=== PATIENT | female | born 1945 | race Caucasian/White ===

== ENCOUNTER 2016-07-11 16:36 | Emergency (ER) | payer MEDICARE, OTHER ==
[~2016-07-11] VITALS: Ht 148.6 cm; Wt 95.0 kg
[~2016-07-11 16:36] MED LIST: ASPI81 PO; EZET10 PO; NITR.4 SL; PRIL40CA PO; TOPR50TA PO; TRIBENZOR
[2016-07-11 16:45] VITALS: BP 151/81; PULSE 146; RESP 16; TEMP 98.9; O2SAT 96
[2016-07-11] MEDS ORDERED: DILTIAZEM INJ 125 MG in SODIUM CHLORIDE 0.9% INJ 100 ML IV SCH (16:45)
[2016-07-11] MEDS ORDERED: DILTIAZEM HCL 25 MG/5 ML VIAL IV ONE (16:45)
[2016-07-11] MEDS ORDERED: SODIUM CHLORIDE 0.9% FLUSH 5 ML FLUSH IVF PRN ×2 (16:45)
--- NOTE | 2016-07-11 16:47 | PD ---
HPI Chief Complaint: palpitations, chest pain Time Seen by Provider: 16:40 Travel History International Travel<30 days: No Contact w/Intl Traveler<30days: No Traveled to known affect area: No History of Present Illness HPI This 71-year-old female says she was watching TV this afternoon when she had an onset of chest pain. It was a pressure type pain which radiated to her back and also up to her jaw. The pain lasted for about 25 minutes. She checked her blood pressure noted her heart rate was 121. She is also having palpitations at that time. She has had palpitations in the past and has been to ERs twice but nothing was found, the palpitations had resolved by the time she got there. She has a history of hypertension and is on metoprolol 100 mg in morning and 50 mg at night. She doesn't also take a combination pill for her high blood pressure with amlodipine and hydrochlorothiazide. She does get dyspnea on exertion. She does not smoke cigarettes. She is not having chest pain now. She has had 4 back surgeries in the past. She had a cardiac catheterization in 2010 which showed normal coronary arteries and normal ejection fraction PFSH Past Medical History Cancer: No Cardiovascular Problems: No Diabetes: No Endocrine: No Genitourinary: No Hepatitis: No Hiatal Hernia: No Immune Disorder: No Musculoskeletal: Yes Neurologic: No Psychiatric: No Reproductive: No Respiratory: Yes (HX OF BRONCHITIS ) Thyroid Disease: No Past Surgical History Ear Surgery: No Eye Surgery: No Gynecologic Surgery: Yes (LEFT TUBE AND OVERY REMOVED ON THE LEFT SIDE ) Joint Replacement: No Pacemaker: No Social History Tobacco Use: No Allergies-Medications (Allergen,Severity, Reaction): Coded Allergies: Ampicillin (Verified Allergy, Severe, 06/03/11) Biaxin (Verified Allergy, Severe, 06/03/11) Morphine (Verified Allergy, Severe, 06/03/11) Uncoded Allergies: STATINS (Allergy, Severe, 06/03/11) Reported Meds & Prescriptions Reported Meds & Active Scripts Active Reported [trivezer] 1 Tab PO DAILY Omeprazole 20 Mg Tab 20 Mg PO DAILY Zetia (Ezetimibe) 10 Mg Tab 10 Mg PO HS Metoprolol Tartrate 100 Mg Tab 100 Mg PO BID Metoprolol Tartrate 50 Mg Tab 50 Mg PO DAILY@1600 Aspirin 81 Mg Tabdr 81 Mg PO DAILY Review of Systems General / Constitutional: No: Fever, Chills Eyes: No: Diploplia HENT: No: Headaches Cardiovascular: Positive: Chest Pain or Discomfort, No: Palpitations Respiratory: No: Cough, Shortness of Breath Gastrointestinal: No: Nausea, Vomiting Genitourinary: No: Frequency Musculoskeletal: No: Myalgias, Arthralgias Skin: No Rash, No Itching Neurologic: No: Dizziness, Syncope Hematologic/Lymphatic: No: Easy Bruising Physical Exam Narrative GENERAL: Well-developed female. Heart rate is 130 and irregular SKIN: Warm and dry. HEAD: Atraumatic. Normocephalic. EYES: Pupils equal and round. No scleral icterus. No injection or drainage. ENT: No nasal bleeding or discharge. Mucous membranes pink and moist. NECK: Trachea midline. No JVD. CARDIOVASCULAR: Rapid, irregular rate and rhythm. No murmur appreciated. RESPIRATORY: No accessory muscle use. Clear to auscultation. Breath sounds equal bilaterally. GASTROINTESTINAL: Abdomen soft, non-tender, nondistended. Hepatic and splenic margins not palpable. MUSCULOSKELETAL: No obvious deformities. No clubbing. No cyanosis. No edema. NEUROLOGICAL: Awake and alert. No obvious cranial nerve deficits. Motor grossly within normal limits. Normal speech. PSYCHIATRIC: Appropriate mood and affect; insight and judgment normal. Data Data Last Documented VS Vital Signs Date Time Temp Pulse Resp B/P Pulse Ox O2 Delivery O2 Flow Rate FiO2 07/11/16 16:49 96 Room Air 07/11/16 16:49 123 16 07/11/16 16:45 98.9 151/81 Orders Electrocardiogram (07/11/16 16:40) B-Type Natriuretic Peptide (07/11/16 16:40) Complete Blood Count With Diff (07/11/16 16:40) Comprehensive Metabolic Panel (07/11/16 16:40) Magnesium (Mg) (07/11/16 16:40) Prothrombin Time / Inr (Pt) (07/11/16 16:40) Act Partial Throm Time (Ptt) (07/11/16 16:40) Troponin I (07/11/16 16:40) Chest, Single Ap (07/11/16 16:40) Ecg Monitoring (07/11/16 16:40) Iv Access Insert/Monitor (07/11/16 16:40) Oximetry (07/11/16 16:40) Oxygen Administration (07/11/16 16:40) Sodium Chloride 0.9% Flush (Ns Flush) (07/11/16 16:45) Blood Pressure (07/11/16 16:40) Vital Signs (07/11/16 16:40) Diltiazem Inj (Cardizem Inj) (07/11/16 16:45) Sodium Chloride 0.9% Flush (Ns Flush) (07/11/16 16:45) Diltiazem Inj (Cardizem Inj) (07/11/16 16:45) Potassium Chloride (Kcl) (07/11/16 17:15) Admit Order (Ed Use Only) (07/11/16 17:50) Labs Laboratory Tests Test 07/11/16 16:40 White Blood Count 6.8 TH/MM3 Red Blood Count 5.31 MIL/MM3 Hemoglobin 15.6 GM/DL Hematocrit 46.3 % Mean Corpuscular Volume 87.2 FL Mean Corpuscular Hemoglobin 29.3 PG Mean Corpuscular Hemoglobin 33.6 % Concent Red Cell Distribution Width 14.1 % Platelet Count 220 TH/MM3 Mean Platelet Volume 8.3 FL Neutrophils (%) (Auto) 44.1 % Lymphocytes (%) (Auto) 40.3 % Monocytes (%) (Auto) 10.8 % Eosinophils (%) (Auto) 2.6 % Basophils (%) (Auto) 2.2 % Neutrophils # (Auto) 3.1 TH/MM3 Lymphocytes # (Auto) 2.7 TH/MM3 Monocytes # (Auto) 0.7 TH/MM3 Eosinophils # (Auto) 0.2 TH/MM3 Basophils # (Auto) 0.1 TH/MM3 CBC Comment DIFF FINAL Differential Comment Prothrombin Time 10.6 SEC Prothromb Time International 1.0 RATIO Ratio Activated Partial 25.9 SEC Thromboplast Time Sodium Level 145 MEQ/L Potassium Level 3.4 MEQ/L Chloride Level 107 MEQ/L Carbon Dioxide Level 27.9 MEQ/L Anion Gap 10 MEQ/L Blood Urea Nitrogen 29 MG/DL Creatinine 1.20 MG/DL Estimat Glomerular Filtration 44 ML/MIN Rate Random Glucose 111 MG/DL Calcium Level 9.1 MG/DL Magnesium Level 1.8 MG/DL Total Bilirubin 0.5 MG/DL Aspartate Amino Transf 19 U/L (AST/SGOT) Alanine Aminotransferase 26 U/L (ALT/SGPT) Alkaline Phosphatase 71 U/L Troponin I LESS THAN 0.02 NG/ML B-Type Natriuretic Peptide 277 PG/ML Total Protein 7.2 GM/DL Albumin 3.8 GM/DL MDM Medical Decision Making Medical Screen Exam Complete: Yes Emergency Medical Condition: Yes Medical Record Reviewed: Yes Differential Diagnosis Differential includes SVT, coronary artery disease, atrial fibrillation Narrative Course EKG shows atrial fibrillation with a rapid rate. Potassium is slightly low at 3.4 this has been supplemented. Patient was started on Cardizem with control of her heart rate she has not converted out of her atrial fibrillation. At approximately 6:28 I have reevaluated the patient and at this time she is in sinus rhythm. She is pain-free. She appears quite stable at this time. She wishes to be released. I had admitted her but she wishes to go home and has come out of her atrial fibrillation. He had stopped the Cardizem and she remained stable. sHe will be released. He is to follow-up with Dr. Siddiqi and Dr. Ernst. Diagnosis Primary Impression: Paroxysmal atrial fibrillation Admitting Information Admitting Physician Requests: Admit Additional Instructions: Return if, follow-up with Dr. Ernst and Dr. Siddiqi Disposition: 01 DISCHARGE HOME Condition: Stable Abdoulaye Jaramillo MD Jul 11, 2016 16:47
[2016-07-11 16:49] VITALS: O2SAT 96
[2016-07-11 16:57] LABS: AUTOMATED NEUTROPHIL # 3.1 TH/MM3 (1.8-7.7); BASOPHIL # 0.1 TH/MM3 (0-0.2); BASOPHIL % 2.2 % (0.0-2.0); EOSINOPHIL # 0.2 TH/MM3 (0-0.4); EOSINOPHIL % 2.6 % (0.0-4.0); HEMATOCRIT 46.3 % (35.0-46.0); HEMO FLAGS DIFF FINAL; LYMPH % 40.3 % (9.0-44.0); LYMPHOCYTE # 2.7 TH/MM3 (1.0-4.8); MEAN CELL VOLUME 87.2 FL (80.0-100.0); MEAN CORPUSCULAR HEMOGLOBIN 29.3 PG (27.0-34.0); MEAN CORPUSCULAR HGB CONC 33.6 % (32.0-36.0); MONO % 10.8 % (0.0-8.0); NEUT % 44.1 % (16.0-70.0); PLATELET COUNT 220 TH/MM3 (150-450); RED BLOOD COUNT 5.31 MIL/MM3 (4.00-5.30); RED CELL DISTRIBUTION WIDTH 14.1 % (11.6-17.2); WHITE BLOOD COUNT 6.8 TH/MM3 (4.0-11.0)
[2016-07-11 17:03] LABS: CHLORIDE 107 MEQ/L (98-107); POTASSIUM 3.4 MEQ/L (3.5-5.1); SODIUM (NA) 145 MEQ/L (136-145)
[2016-07-11] MEDS ORDERED: ASPI1TAB69 PO (17:04)
[2016-07-11] MEDS ORDERED: METO100T PO (17:04)
[2016-07-11] MEDS ORDERED: METO50TA PO (17:04)
[2016-07-11] MEDS ORDERED: OMEP20TA PO (17:04)
[2016-07-11] MEDS ORDERED: ZETI10TA5 PO (17:04)
[2016-07-11] MEDS ORDERED: [UNRECOGNIZED DRUG - OTHER] PO (17:04)
[2016-07-11 17:07] LABS: ANION GAP 10 MEQ/L (5-15); BICARBONATE 27.9 MEQ/L (21.0-32.0); BLOOD UREA NITROGEN 29 MG/DL (7-18); MAGNESIUM 1.8 MG/DL (1.5-2.5)
[2016-07-11 17:09] LABS: APTT (PATIENT) 25.9 SEC (24.3-30.1); PROTHROMBIN TIME - PATIENT 10.6 SEC (9.8-11.6)
[2016-07-11 17:10] LABS: ALT (GPT) 26 U/L (10-53); AST (GOT) 19 U/L (15-37); GLOMERULAR FILTRATION RATE 44 ML/MIN (>89)
[2016-07-11 17:11] LABS: TOTAL BILIRUBIN ADULT 0.5 MG/DL (0.2-1.0)
[2016-07-11 17:13] LABS: ALKALINE PHOSPHATASE 71 U/L (45-117)
[2016-07-11] MEDS ORDERED: POTASSIUM CHLORIDE 20 MEQ CONTROLLED RELEASE TAB PO ONE (17:15)
--- NOTE | 2016-07-11 17:19 | RADHPO ---
EXAM DATE/TIME: 07/11/2016 17:06 [facility] COMPARISON: CHEST SINGLE AP, November 16, 2012, 7:12. INDICATIONS : Chest pain. MEDICAL HISTORY : Hypertension. Hypercholesterolemia. Glaucoma SURGICAL HISTORY : Fusion, lumbar. ENCOUNTER: Initial ACUITY: 1 day PAIN SCORE: 7/10 LOCATION: Bilateral chest FINDINGS: A single view of the chest demonstrates the lungs to be symmetrically aerated without evidence of mas s, infiltrate or effusion. The cardiomediastinal contours are unremarkable. Osseous structures are intact. CONCLUSION: No acute disease. Yunior Yanes MD on July 11, 2016 at 17:18 Board Certified Radiologist. This report was verified electronically.
[2016-07-11 19:10] VITALS: BP 136/65; PULSE 72; RESP 18; O2SAT 98
[2016-07-11 19:40] VITALS: BP 119/69
--- NOTE | 2016-07-12 15:40 | EKG ---
Date Performed: 07/11/2016 Time Performed: 16:23:20 PTAGE: 71 years EKG: Atrial fibrillation with rapid ventricular response. Left axis deviation Inferior infarct - age undetermined Possible anterior infarct - age undetermined Lateral ST-T changes may be due to gilma cardial ischemia Atrial fibrillation replaces Sinus rhythm Abnormal ECG PREVIOUS TRACING : 11/16/2012 07.22 DOCTOR: Steven Kirk Interpretating Date/Time 07/12/2016 15:39:44
[2016-07-13] MEDS ORDERED: TRIBTAB PO (15:10)
== END 2016-07-11 19:44 | disposition home or self-care (01) ==
LOC: PHED 16:36 → UNDOADMOB 17:51 → PHEDA 17:51 → PHED 19:44
DX: I48.0 Paroxysmal atrial fibrillation (principal); I10 Essential (primary) hypertension; R06.09 Other forms of dyspnea; E87.6 Hypokalemia; Z79.899 Other long term (current) drug therapy
CPT/HCPCS: 71010; 80053; 83735; 83880; 84484; 85025; 85610; 85730; 93005; 96374

== ENCOUNTER 2016-09-12 03:01 | Inpatient (IN) | payer MEDICARE, OTHER ==
[2016-09-12] VITALS (18 sets, daily range): BP systolic 115–145; BP diastolic 44–85; PULSE 56–136; RESP 14–20; TEMP 97.8–98.2; O2SAT 92–99
[~2016-09-12] VITALS: Ht 147.3 cm; Wt 96.2 kg
[~2016-09-12 03:01] MED LIST changes: +ASPI1TAB69 PO; -ASPI81 PO; -EZET10 PO; +METO100T PO; +METO50TA PO; -NITR.4 SL; +OMEP20TA PO; -PRIL40CA PO; -TOPR50TA PO; -TRIBENZOR; +TRIBTAB PO; +ZETI10TA5 PO
[2016-09-12] MEDS ORDERED: SODIUM CHLORIDE 0.9% FLUSH 5 ML FLUSH IVF PRN (03:30)
[2016-09-12] MEDS ORDERED: DILTIAZEM HCL 25 MG/5 ML VIAL IV ONE ×2 (03:30)
[2016-09-12 03:46] LABS: BASOPHIL # 0.2 TH/MM3 (0-0.2); BASOPHIL % 1.9 % (0.0-2.0); EOSINOPHIL # 0.1 TH/MM3 (0-0.4); EOSINOPHIL % 1.1 % (0.0-4.0); HEMATOCRIT 47.5 % (35.0-46.0); LYMPH % 26.3 % (9.0-44.0); LYMPHOCYTE # 2.6 TH/MM3 (1.0-4.8); MEAN CELL VOLUME 88.1 FL (80.0-100.0); MEAN CORPUSCULAR HEMOGLOBIN 29.4 PG (27.0-34.0); MEAN CORPUSCULAR HGB CONC 33.3 % (32.0-36.0); MONO % 8.9 % (0.0-8.0); NEUT % 61.8 % (16.0-70.0); PLATELET COUNT 204 TH/MM3 (150-450); RED BLOOD COUNT 5.39 MIL/MM3 (4.00-5.30); RED CELL DISTRIBUTION WIDTH 14.2 % (11.6-17.2); WHITE BLOOD COUNT 9.8 TH/MM3 (4.0-11.0)
--- NOTE | 2016-09-12 03:50 | RADHPO ---
EXAM DATE/TIME: 09/12/2016 03:43 [facility] COMPARISON: No previous studies available for comparison. INDICATIONS : Chest pain, irregular heart rate for 4 hours MEDICAL HISTORY : A-fib SURGICAL HISTORY : None. ENCOUNTER: Initial ACUITY: 1 day PAIN SCORE: 5/10 LOCATION: Bilateral chest FINDINGS: A single view of the chest demonstrates the lungs to be symmetrically aerated without evidence of mas s, infiltrate or effusion. The cardiomediastinal contours are unremarkable. Osseous structures are intact. CONCLUSION: 1. No active disease. No effusion or pneumothorax. Demetrio Guevara MD on September 12, 2016 at 3:48 Board Certified Radiologist. This report was verified electronically.
[2016-09-12 03:51] LABS: HEMO FLAGS DIFF FINAL
[2016-09-12 03:56] LABS: CHLORIDE 103 MEQ/L (98-107); POTASSIUM 3.4 MEQ/L (3.5-5.1); SODIUM (NA) 142 MEQ/L (136-145)
[2016-09-12 03:59] LABS: ANION GAP 11 MEQ/L (5-15); MAGNESIUM 1.5 MG/DL (1.5-2.5)
[2016-09-12 04:00] LABS: BLOOD UREA NITROGEN 23 MG/DL (7-18)
[2016-09-12 04:02] LABS: APTT (PATIENT) 28.3 SEC (24.3-30.1); INTERNATIONAL NORMALIZED RATIO 1.1 RATIO; PROTHROMBIN TIME - PATIENT 11.7 SEC (9.8-11.6)
[2016-09-12 04:03] LABS: GLOMERULAR FILTRATION RATE 37 ML/MIN (>89)
[2016-09-12 04:12] LABS: CREATINE KINASE 94 U/L (26-192)
--- NOTE | 2016-09-12 04:43 | PD ---
HPI Chief Complaint: Cardiac Complaint Time Seen by Provider: 03:14 Travel History International Travel<30 days: No Contact w/Intl Traveler<30days: No Traveled to known affect area: No History of Present Illness HPI 71-year-old female arrives due to irregular heartbeat at home chest pain and back pain which started about 3 hours prior to ER arrival. She knew her heart rate was irregular using her home blood pressure cuff. She reports a recent diagnosis of atrial fibrillation about [address] Ernst. She takes metoprolol, Tribenzor, Eliquis and digoxin. The patient reports she has been quite busy this past week preparing for her taxes. Otherwise she has been in her normal state of health. PFSH Past Medical History Atrial Fibrillation: Yes Cancer: No Cardiovascular Problems: Yes High Cholesterol: Yes Diabetes: No Diminished Hearing: No Endocrine: No Gastrointestinal Disorders: No Glaucoma: Yes Genitourinary: No Hepatitis: No Hiatal Hernia: No Hypertension: Yes Immune Disorder: No Musculoskeletal: Yes Neurologic: No Psychiatric: No Reproductive: No Respiratory: Yes (HX OF BRONCHITIS ) Thyroid Disease: No Tetanus Vaccination: > 5 Years Influenza Vaccination: No Past Surgical History Ear Surgery: No Eye Surgery: No Gynecologic Surgery: Yes (LEFT TUBE AND OVERY REMOVED ON THE LEFT SIDE ) Joint Replacement: No Pacemaker: No Other Surgery: Yes (Cataracts) Social History Alcohol Use: No Tobacco Use: No Substance Use: No Allergies-Medications (Allergen,Severity, Reaction): Coded Allergies: Ampicillin (Verified Allergy, Severe, 06/03/11) Biaxin (Verified Allergy, Severe, 06/03/11) Morphine (Verified Allergy, Severe, 06/03/11) Uncoded Allergies: STATINS (Allergy, Severe, 06/03/11) Reported Meds & Prescriptions Reported Meds & Active Scripts Active Reported Tribenzor (Ueziqknrwi-Tpggtpbtlh-Bbknvtdbuhelxxambpy) Unknown Strength Tab Unknown Dose PO DAILY Omeprazole 20 Mg Tab 20 Mg PO DAILY Zetia (Ezetimibe) 10 Mg Tab 10 Mg PO HS Metoprolol Tartrate 100 Mg Tab 100 Mg PO BID Metoprolol Tartrate 50 Mg Tab 50 Mg PO DAILY@1600 Aspirin 81 Mg Tabdr 81 Mg PO DAILY Review of Systems Except as stated in HPI: all other systems reviewed are Neg Physical Exam Narrative GENERAL: 71 F, WNWD, NAD SKIN: Warm and dry. HEAD: Atraumatic. Normocephalic. EYES: Pupils equal and round. No scleral icterus. No injection or drainage. ENT: No nasal bleeding or discharge. Mucous membranes pink and moist. NECK: Trachea midline. No JVD. CARDIOVASCULAR: Irregular. Tachycardia. RESPIRATORY: No accessory muscle use. Clear to auscultation. Breath sounds equal bilaterally. GASTROINTESTINAL: Abdomen soft, non-tender, nondistended. Hepatic and splenic margins not palpable. MUSCULOSKELETAL: Extremities without clubbing, cyanosis, or edema. No obvious deformities. NEUROLOGICAL: Awake and alert. No obvious cranial nerve deficits. Motor grossly within normal limits. Five out of 5 muscle strength in the arms and legs. Normal speech. PSYCHIATRIC: Appropriate mood and affect; insight and judgment normal. Data Data Last Documented VS Vital Signs Date Time Temp Pulse Resp B/P Pulse Ox O2 Delivery O2 Flow Rate FiO2 09/12/16 04:45 79 128/78 97 Nasal Cannula 2 09/12/16 03:55 16 09/12/16 03:15 98.1 VS noted Orders Electrocardiogram (09/12/16 03:16) Basic Metabolic Panel (Bmp) (09/12/16 03:16) Ckmb (Isoenzyme) Profile (09/12/16 03:16) Complete Blood Count With Diff (09/12/16 03:16) Magnesium (Mg) (09/12/16 03:16) Prothrombin Time / Inr (Pt) (09/12/16 03:16) Act Partial Throm Time (Ptt) (09/12/16 03:16) Troponin I (09/12/16 03:16) Chest, Single Ap (09/12/16 03:16) Ecg Monitoring (09/12/16 03:16) Bilateral Bp Monitoring (09/12/16 03:16) Iv Access Insert/Monitor (09/12/16 03:16) Oximetry (09/12/16 03:16) Oxygen Administration (09/12/16 03:16) Sodium Chloride 0.9% Flush (Ns Flush) (09/12/16 03:30) Diltiazem Inj (Cardizem Inj) (09/12/16 03:30) Diltiazem Inj (Cardizem Inj) (09/12/16 03:30) Diltiazem Inj (Cardizem Inj) (09/12/16 05:00) Admit Order (Ed Use Only) (09/12/16 04:58) Labs Laboratory Tests Test 09/12/16 03:17 White Blood Count 9.8 TH/MM3 Red Blood Count 5.39 MIL/MM3 Hemoglobin 15.8 GM/DL Hematocrit 47.5 % Mean Corpuscular Volume 88.1 FL Mean Corpuscular Hemoglobin 29.4 PG Mean Corpuscular Hemoglobin 33.3 % Concent Red Cell Distribution Width 14.2 % Platelet Count 204 TH/MM3 Mean Platelet Volume 9.3 FL Neutrophils (%) (Auto) 61.8 % Lymphocytes (%) (Auto) 26.3 % Monocytes (%) (Auto) 8.9 % Eosinophils (%) (Auto) 1.1 % Basophils (%) (Auto) 1.9 % Neutrophils # (Auto) 6.0 TH/MM3 Lymphocytes # (Auto) 2.6 TH/MM3 Monocytes # (Auto) 0.9 TH/MM3 Eosinophils # (Auto) 0.1 TH/MM3 Basophils # (Auto) 0.2 TH/MM3 CBC Comment DIFF FINAL Differential Comment Prothrombin Time 11.7 SEC Prothromb Time International 1.1 RATIO Ratio Activated Partial 28.3 SEC Thromboplast Time Sodium Level 142 MEQ/L Potassium Level 3.4 MEQ/L Chloride Level 103 MEQ/L Carbon Dioxide Level 28.0 MEQ/L Anion Gap 11 MEQ/L Blood Urea Nitrogen 23 MG/DL Creatinine 1.40 MG/DL Estimat Glomerular Filtration 37 ML/MIN Rate Random Glucose 119 MG/DL Calcium Level 9.9 MG/DL Magnesium Level 1.5 MG/DL Total Creatine Kinase 94 U/L Troponin I LESS THAN 0.02 NG/ML MDM Medical Decision Making Medical Screen Exam Complete: Yes Emergency Medical Condition: Yes Medical Record Reviewed: Yes Interpretation(s) EKG: Atrial fibrillation with RVR rate 126 left axis deviation Last 24 hours Impressions Chest X-Ray 09/12/166 Signed Impressions: Service Date/Time: Monday, September 12, 2016 03:43 - CONCLUSION: 1. No active disease. No effusion or pneumothorax. Demetrio Guevara MD CBC & BMP Diagram 09/12/16 03:17 Tn < 0.02 Stress test from two months prior was normal INR 1.1 Differential Diagnosis NSTEMI, unstable angina, coronary vasospasm, PE, PTX, aortic dissection, pericarditis, myocarditis, endocarditis, PNA, esophageal disease, aneurysm, musculoskeletal etiologies, anxiety, cocaine/sympathomimetic abuse Narrative Course Case was discussed with Dr. Siddiqi's mid-level provider. Dr. Siddiqi is out of town and asked that the hospitalist service admit. The patient required 2 doses of diltiazem however persistently irregular rhythm remained trending towards 100 bpm. A diltiazem drip was initiated. Fortunately the patient's chest pain remained essentially asymptomatic. We did discuss with Dr. Siddiqi' s advance practitioner that the patient had slightly declining renal function which will be addressed on an outpatient basis. D/w Dr Jha. Diagnosis Primary Impression: Atrial fibrillation with rapid ventricular response Additional Impression: Hypokalemia Admitting Information Admitting Physician Requests: Pritesh Humphryes MD Sep 12, 2016 04:43
[2016-09-12] MEDS ORDERED: SODIUM CHLORIDE 0.9% FLUSH 5 ML FLUSH FLUSH PRN (05:00)
[2016-09-12] MEDS ORDERED: NALOXONE HCL 0.4 MG/ML AMP IV PRN (05:00)
[2016-09-12] MEDS ORDERED: DILTIAZEM INJ 125 MG in SODIUM CHLORIDE 0.9% INJ 100 ML IV SCH (05:00)
[2016-09-12] MEDS: SODIUM CHLORIDE 0.9% FLUSH 5 ML FLUSH FLUSH SCH ×2 (08:57→20:25)
[2016-09-12] MEDS ORDERED: APIX5TAB PO (10:08)
[2016-09-12] MEDS ORDERED: CYAN100015 BUCCAL (10:08)
[2016-09-12] MEDS ORDERED: OCUVTAB PO (10:08)
[2016-09-12] MEDS ORDERED: D-3 PO (10:08)
[2016-09-12] MEDS ORDERED: LUMI0.01 EACH EYE (10:08)
[2016-09-12] MEDS ORDERED: DIGO0.12 PO (10:08)
--- NOTE | 2016-09-12 11:47 | MB ---
cc: NARESH ARTHUR DATE OF CONSULTATION 09/12/2016 DATE OF 1945 REASON FOR CONSULTATION Atrial fibrillation with rapid ventricular response. HISTORY OF PRESENT ILLNESS 71-year-old female with a past medical history significant for atrial fibrillation on chronic oral Anticoagulation, GERD, hyperlipidemia and chronic kidney disease who presented to the emergency department in [place] with complaints of palpitations, mild chest discomfort and back pain. She reports she was in her usual state of health until yesterday where she felt palpitations. She reports she has been under a lot of stress lately filing her taxes. She denies syncope, presyncope, lightheadedness, PND, leg edema or noncompliance with medications. She recently was seen by Dr. Ernst ([facility]) for a general evaluation. She was found to be in atrial fibrillation and started and Metoprolol and Eliquis, also she had a negative ischemic work up with unremarkable MPI and echocardiogram. She was also referred to Dr. Blakely for possible ablation of atrial fibrillation. Currently she denies fevers, chills, nausea, vomiting or diarrhea, weight gain, weight loss, chest pain, shortness of breath. She is back in normal sinus rhythm with the rate in the 60s. In the emergency department, she was given IV Cardizem. REVIEW OF SYSTEMS The review of systems is negative except for what is mentioned in the HPI. PAST MEDICAL HISTORY 1. Atrial fibrillation 2. GERD 3. Hyperlipidemia 4. Chronic kidney disease PAST SURGICAL HISTORY 1. Cataract surgery 2. Left sided ovary removed SOCIAL HISTORY She denies alcohol, tobacco or illicit drug use. ALLERGIES She reports allergies to AMPICILLIN, BIAXIN, AND MORPHINE. ALSO AN ALLERGY TO STATINS. HOME MEDICATIONS 1. Metoprolol 100 mg p.o. b.i.d. 2. Zetia 10 mg p.o. q.h.s. 3. Omeprazole 20 mg p.o. daily 4. Aspirin 81 mg p.o. daily 5. Eliquis 5 mg p.o. b.i.d. PHYSICAL EXAM VITAL SIGNS: Temperature 98, pulse 57, respiratory rate 14, blood pressure was 133/44, O2 sat 99% on two liters nasal cannula. GENERAL: She is awake, alert, and oriented x3 in no acute distress. NECK: No JVD, no carotid bruits. HEART: Regular rate and rhythm. No murmurs, rubs or gallops appreciated. LUNGS: Clear to auscultation bilaterally. ABDOMEN: Positive bowel sounds, soft, nontender, nondistended. EXTREMITIES: No cyanosis or edema and pulses throughout. DATA CBC hemoglobin 15, hematocrit 47, platelet 204, INR 1.1. Chemistries sodium 142, potassium 3.4, BUN 23, creatinine 1.4, troponin less than 0.02. Chest x-ray, no active cardiopulmonary disease. EKG atrial fibrillation with a rapid ventricular response. ASSESSMENT/PLAN 71-year-old female admitted to the hospital in atrial fibrillation with rapid ventricular response. Unclear the reason for the exacerbation of the atrial fibrillation. She reports being compliant with medications, however she does relate having a lot of stress especially with the tax season. Atrial fibrillation has been controlled with IV Cardizem. She remains hemodynamically stable now in sinus rhythm. Denies chest pain, shortness of breath or palpitations. She had an essentially unremarkable recent cardiac workup in the office with a negative stress test and an unremarkable echocardiogram at the beginning of August of this year. Thus, my recommendations at this time would be to continue rate control with p.o., start Cardizem 120 mg p.o. daily and continue the Eliquis 5 mg p.o. b.i.d. She has an appointment to see Dr. Ernst next week, as well as to see Dr. Blakely for possible ablation of the atrial fibrillation. Regarding her home medications, I would discontinue her metoprolol. Thank you for the opportunity to take part in the care of this patient. We will be available on a p.r.n. basis for any other questions or concerns. MD ANKITA Graham/RAFY /11:10 AM /11:30 AM JOHNNIE
[2016-09-12] MEDS ORDERED: DILTIAZEM-CD 120 MG CAP ER PO ONE (12:00)
[2016-09-12] MEDS: APIXABAN 5 MG TABLET PO SCH ×2 (12:17→20:26)
--- NOTE | 2016-09-12 15:36 | EKG ---
Date Performed: 09/12/2016 Time Performed: 03:15:50 PTAGE: 71 years EKG: Atrial fibrillation with rapid ventricular response. Left axis deviation Inferior infarct - age undetermined QRS changes V3/V4 may be due to LVH but cannot rule out anterior infarct Lateral ST -T changes may be due to myocardial ischemia Abnormal ECG PREVIOUS TRACING : 07/11/2016 16.23 Compared to prior tracing no significant change DOCTOR: Heide Clark Interpretating Date/Time 09/12/2016 15:34:16
--- NOTE | 2016-09-12 18:15 | HHI.HP ---
[facility] Primary Care Physician Ruba Siddiqi MD Admission Diagnosis AFib RVR, CP Diagnoses: Chief Complaint: Palpitation and chest pain Travel History International Travel<30 Days: No Contact w/Intl Traveler <30 Da: No Traveled to Known Affected Are: No History of Present Illness 71 years old female withH/O A. fib is on chronic rate control digoxin and Lopressor as well as anticoagulation, GRD, hyperlipidemia, CKD presented to the ED complaining of chest discomfort, palpitation that gave her back pain. Patient stated her symptoms started yesterday and she attributed it for some stress she had regarding filing taxes. Patient denied any headache or lightheaded, syncope,. She reported having some orthopnea and leg swelling occasionally. She started on Cardizem in ED and her reasons switched to sinus. Cardiology consulted recommending continuing Cardizem by mouth. Continuing Eliquis patient follow up with Dr. Brandon he, she had negative ischemic workup and echocardiogram as per cardiology patient followed by Sayed she had ablation in the past. Currently patient doing well no chest pain no palpitation her heart rate is around 80 increase with movement, she told me she wants to be discharged however I explained to her we need to monitor her heart rate under the new medication prior to be discharged Review of Systems All 10 systems reviewed and was positive for what is mentioned in history of present illness otherwise negative Past Family Social History Past Medical History As per history of present illness Past Surgical History Oophorectomy, cataract Allergies: Coded Allergies: Ampicillin (Verified Allergy, Severe, 09/12/16) Biaxin (Verified Allergy, Severe, 09/12/16) Morphine (Verified Allergy, Severe, 09/12/16) Uncoded Allergies: STATINS (Allergy, Severe, 06/03/11) Family History Patient not aware of significant disease within her family Social History Denied tobacco alcohol or illicit drug abuse Physical Exam Vital Signs Vital Signs Date Time Temp Pulse Resp B/P Pulse Ox O2 Delivery O2 Flow Rate FiO2 09/12/16 18:10 70 18 141/50 93 Room Air 09/12/16 15:28 98.1 75 18 115/47 93 Room Air 09/12/16 11:17 138/46 133/44 09/12/16 11:09 97.8 67 18 138/46 95 Room Air 09/12/16 11:09 Room Air 09/12/16 07:11 98.0 57 14 133/44 99 Nasal Cannula 2 09/12/16 07:11 2 09/12/16 06:27 56 134/85 98 Nasal Cannula 2 09/12/16 06:00 58 131/48 96 Nasal Cannula 2 09/12/16 05:30 56 132/64 97 Nasal Cannula 2 09/12/16 05:03 105 140/73 96 Nasal Cannula 2 09/12/16 04:45 79 128/78 97 Nasal Cannula 2 09/12/16 04:31 92 Nasal Cannula 2 09/12/16 04:30 71 145/60 92 09/12/16 04:23 98 140/63 95 Room Air 09/12/16 04:10 92 135/84 96 Room Air 09/12/16 03:55 84 16 115/56 96 Room Air 09/12/16 03:35 89 137/78 95 Room Air 09/12/16 03:20 98 Room Air 09/12/16 03:20 98 Room Air 09/12/16 03:15 98.1 136 20 136/75 97 Physical Exam GENERAL: This is a well-nourished, well-developed patient, in no apparent distress. SKIN: No rashes, warm and dry HEAD: Atraumatic. Normocephalic. EYES: Pupils equal round and reactive. Extraocular motions intact. No scleral icterus. ENT: Nose without bleeding, or drainage, Airway patent. NECK: Trachea midline. Supple CARDIOVASCULAR: Regular rate and rhythm without murmurs, gallops, or rubs. RESPIRATORY: Fair air entry bilaterally. No wheezes, rales, or rhonchi. GASTROINTESTINAL: Abdomen soft, non-tender, nondistended. Positive bowel sounds MUSCULOSKELETAL: Extremities without clubbing, cyanosis, or edema. Pedal pulses appreciated NEUROLOGICAL: Awake and alert. Moves all extremity. Normal speech.no focal neurological deficit Laboratory Laboratory Tests Test 09/12/16 03:17 White Blood Count 9.8 Red Blood Count 5.39 Hemoglobin 15.8 Hematocrit 47.5 Mean Corpuscular Volume 88.1 Mean Corpuscular Hemoglobin 29.4 Mean Corpuscular Hemoglobin 33.3 Concent Red Cell Distribution Width 14.2 Platelet Count 204 Mean Platelet Volume 9.3 Neutrophils (%) (Auto) 61.8 Lymphocytes (%) (Auto) 26.3 Monocytes (%) (Auto) 8.9 Eosinophils (%) (Auto) 1.1 Basophils (%) (Auto) 1.9 Neutrophils # (Auto) 6.0 Lymphocytes # (Auto) 2.6 Monocytes # (Auto) 0.9 Eosinophils # (Auto) 0.1 Basophils # (Auto) 0.2 CBC Comment DIFF FINAL Differential Comment Prothrombin Time 11.7 Prothromb Time International 1.1 Ratio Activated Partial 28.3 Thromboplast Time Sodium Level 142 Potassium Level 3.4 Chloride Level 103 Carbon Dioxide Level 28.0 Anion Gap 11 Blood Urea Nitrogen 23 Creatinine 1.40 Estimat Glomerular Filtration 37 Rate Random Glucose 119 Calcium Level 9.9 Magnesium Level 1.5 Total Creatine Kinase 94 Troponin I LESS THAN 0.02 Result Diagram: 09/12/1631609/12/16316 Imaging Last Impressions Chest X-Ray 09/12/16315 Signed Impressions: Service Date/Time: Monday, September 12, 2016 03:43 - CONCLUSION: 1. No active disease. No effusion or pneumothorax. Demetrio Guevara MD Assessment and Plan Assessment and Plan 71 result female came with chest discomfort and palpitation A. fib exacerbation with RVR: Patient has a history of ablation She is on Lopressor digoxin and elliquis Cardiology consulted appreciated their input, Cardizem iv switched to by mouth Continue monitoring under telemetry adjust rate control medication Continue elliquis Onset of cardiac enzyme within normal limit Hyperlipidemia: Continue Zetia GERD: Continue PPI Hypertension: We'll hold amlodipine, olmesartan, will continue hydrochlorothiazide from home meds, Vasotec as needed DVT prophylaxis on elliquis Discussed Condition With Patient and her and PA Physician Certification 2 Midnight Certification Type: Admission for Inpatient Services Order for Inpatient Services The services are ordered in accordance with Medicare regulations or non- Medicare payer requirements, as applicable. In the case of services not specified as inpatient-only, they are appropriately provided as inpatient services in accordance with the 2-midnight benchmark. Estimated LOS (days): 2 days is the estimated time the patient will need to remain in the hospital, assuming treatment plan goals are met and no additional complications. Post-Hospital Plan: Not yet determined Sari Andrews MD Sep 12, 2016 18:15
[2016-09-12] MEDS ORDERED: ENALAPRILAT 1.25 MG/ML VIAL IV PUSH PRN (19:00)
[2016-09-12] MEDS ORDERED: EZETIMIBE 10 MG TAB PO SCH (21:00)
[2016-09-13 00:02] VITALS: BP 139/69; PULSE 73; RESP 12; TEMP 98.5; O2SAT 96
[2016-09-13 04:02] VITALS: BP 134/60; PULSE 75; RESP 16; TEMP 97.5; O2SAT 94
[2016-09-13 07:23] LABS: AUTOMATED NEUTROPHIL # 2.1 TH/MM3 (1.8-7.7); BASOPHIL % 0.5 % (0.0-2.0); EOSINOPHIL # 0.1 TH/MM3 (0-0.4); EOSINOPHIL % 3.3 % (0.0-4.0); HEMATOCRIT 41.2 % (35.0-46.0); HEMO FLAGS DIFF FINAL; LYMPH % 38.4 % (9.0-44.0); LYMPHOCYTE # 1.7 TH/MM3 (1.0-4.8); MEAN CELL VOLUME 87.3 FL (80.0-100.0); MEAN CORPUSCULAR HEMOGLOBIN 29.6 PG (27.0-34.0); MEAN CORPUSCULAR HGB CONC 33.9 % (32.0-36.0); MONO % 11.5 % (0.0-8.0); NEUT % 46.3 % (16.0-70.0); PLATELET COUNT 155 TH/MM3 (150-450); RED BLOOD COUNT 4.72 MIL/MM3 (4.00-5.30); RED CELL DISTRIBUTION WIDTH 14.1 % (11.6-17.2); WHITE BLOOD COUNT 4.4 TH/MM3 (4.0-11.0)
[2016-09-13 07:49] LABS: CHLORIDE 106 MEQ/L (98-107); POTASSIUM 3.3 MEQ/L (3.5-5.1); SODIUM (NA) 145 MEQ/L (136-145)
[2016-09-13 08:00] VITALS: BP 149/67; PULSE 74; RESP 18; TEMP 97.4; O2SAT 92
[2016-09-13 08:08] LABS: ALKALINE PHOSPHATASE 61 U/L (45-117); ALT (GPT) 28 U/L (10-53); ANION GAP 8 MEQ/L (5-15); AST (GOT) 21 U/L (15-37); BICARBONATE 30.6 MEQ/L (21.0-32.0); BLOOD UREA NITROGEN 18 MG/DL (7-18); GLOMERULAR FILTRATION RATE 49 ML/MIN (>89); TOTAL BILIRUBIN ADULT 0.6 MG/DL (0.2-1.0)
[2016-09-13] MEDS ORDERED: PANTOPRAZOLE SOD 20 MG DELAYED RELEASE TAB PO SCH (09:00)
[2016-09-13] MEDS ORDERED: DILTIAZEM-CD 120 MG CAP ER PO SCH (09:00)
[2016-09-13] MEDS ORDERED: HYDROCHLOROTHIAZIDE 12.5 MG CAP PO SCH (09:00)
[2016-09-13] MEDS: SODIUM CHLORIDE 0.9% FLUSH 5 ML FLUSH FLUSH SCH (09:05)
[2016-09-13] MEDS: APIXABAN 5 MG TABLET PO SCH (09:06)
[2016-09-13] MEDS ORDERED: HYDR12.57 PO (09:43)
[2016-09-13] MEDS ORDERED: CARD120C4 PO (09:43)
[2016-09-13] MEDS ORDERED: POTASSIUM CHLORIDE 20 MEQ CONTROLLED RELEASE TAB PO ONE (09:45)
--- NOTE | 2016-09-13 12:07 | HHI.PR ---
Objective Vitals Vital Signs Date Time Temp Pulse Resp B/P Pulse Ox O2 Delivery O2 Flow Rate FiO2 09/13/16 08:00 97.4 74 18 149/67 92 09/13/16 04:02 97.5 75 16 134/60 94 09/13/16 00:02 98.5 73 12 139/69 96 09/12/16 20:02 98.2 74 14 142/59 95 09/12/16 18:10 70 18 141/50 93 Room Air 09/12/16 15:28 98.1 75 18 115/47 93 Room Air I/O 09/12/16 09/12/16 09/12/16 09/13/16 09/13/16 09/13/16 07:00 15:00 23:00 07:00 15:00 23:00 # Voids 2 2 Result Diagram: 09/13/16 0603 09/13/16 0603 Sari Andrews MD Sep 13, 2016 12:07
--- NOTE | 2016-09-13 19:21 | HHI.PR ---
Subjective Remarks Patient did well overnight on Cardizem by mouth, heart rate in the 70s, no chest pain short of breath palpitation lightheaded or dizziness Is cussed extensively with the patient will discharge her on Cardizem Eliquis and hydrochlorothiazide for the control blood pressure Objective Vitals Vital Signs Date Time Temp Pulse Resp B/P Pulse Ox O2 Delivery O2 Flow Rate FiO2 09/13/16 08:00 97.4 74 18 149/67 92 09/13/16 04:02 97.5 75 16 134/60 94 09/13/16 00:02 98.5 73 12 139/69 96 09/12/16 20:02 98.2 74 14 142/59 95 I/O 09/12/16 09/12/16 09/12/16 09/13/16 09/13/16 09/13/16 07:00 15:00 23:00 07:00 15:00 23:00 # Voids 2 2 Result Diagram: 09/13/16 0603 09/13/16 0603 Objective Remarks GENERAL: This is a well-nourished, well-developed patient, in no apparent distress. SKIN: No rashes, warm and dry HEAD: Atraumatic. Normocephalic. EYES: Pupils equal round and reactive. Extraocular motions intact. No scleral icterus. ENT: Nose without bleeding, or drainage, Airway patent. NECK: Trachea midline. Supple CARDIOVASCULAR: Regular rate and rhythm without murmurs, gallops, or rubs. RESPIRATORY: Fair air entry bilaterally. No wheezes, rales, or rhonchi. GASTROINTESTINAL: Abdomen soft, non-tender, nondistended. Positive bowel sounds MUSCULOSKELETAL: Extremities without clubbing, cyanosis, or edema. Pedal pulses appreciated NEUROLOGICAL: Awake and alert. Moves all extremity. Normal speech.no focal neurological deficit A/P Assessment and Plan 71 result female came with chest discomfort and palpitation A. fib exacerbation with RVR: Patient has a history of ablation She is on Lopressor digoxin and elliquis, hold Lopressor and digoxin, patient doing well on Cardizem by mouth Cardiology consulted appreciated their input, Cardizem iv switched to by mouth Continue monitoring under telemetry adjust rate control medication Continue elliquis Onset of cardiac enzyme within normal limit Hyperlipidemia: Continue Zetia GERD: Continue PPI Hypertension: hold amlodipine, olmesartan, continue hydrochlorothiazide from home meds, Vasotec as needed Patient doing well on Cardizem by mouth but continue Lopressor on digoxin on hold, as well as amlodipine and ARB, patient to follow up with her [facility] and PCP post discharge Discharge patient to home Condition on discharge: Improved Regular Diet as tolerated Ad Iwona activity Rx written: Cardizem, hydrochlorothiazide, hold digoxin Lopressor, hold ARB and amlodipine Follow-up with primary care physician and cardiology in one week Sari Andrews MD Sep 13, 2016 19:21
== END 2016-09-13 12:33 | disposition home or self-care (01) | DRG 310 ==
LOC: PHED 03:01 → PHEDA 05:00 → PHEDH 08:52 → PH3A 18:27
PROVIDERS: ADMIT Hospitalist; ATTEND Hospitalist
DX: I48.91 Unspecified atrial fibrillation (principal); E87.6 Hypokalemia; I12.9 Hypertensive chronic kidney disease with stage 1 through stage 4 chronic kidney disease, or unspecified chronic kidney disease; E78.5 Hyperlipidemia, unspecified; K21.9 Gastro-esophageal reflux disease without esophagitis; H40.9 Unspecified glaucoma; Z79.01 Long term (current) use of anticoagulants; N18.9 Chronic kidney disease, unspecified; Z88.1 Allergy status to other antibiotic agents; Z88.5 Allergy status to narcotic agent
CPT/HCPCS: 71010; 80048; 80053; 82550; 83735; 84484; 85025; 85610; 85730; 93005; 96374; 96376

== ENCOUNTER → 2016-10-08 | Outpatient (CLI) | payer MEDICARE, OTHER ==
[~2016-10-08] MED LIST changes: +APIX5TAB PO; -ASPI1TAB69 PO; +CARD120C4 PO; +CYAN100015 BUCCAL; +D-3 PO; +DIGO0.12 PO; +HYDR12.57 PO; +LUMI0.01 EACH EYE; +OCUVTAB PO; +POTA-163 PO
== END ==
LOC: PLAB 08:15
PROVIDERS: ATTEND Family Medicine
DX: E87.0 Hyperosmolality and hypernatremia (principal); E87.6 Hypokalemia
CPT/HCPCS: 36415; 80048

== ENCOUNTER 2016-10-21 10:41 | Day surgery (SDC) | payer MEDICARE, OTHER ==
[~2016-10-21] VITALS: Ht 149.9 cm; Wt 99.0 kg
[2016-10-21] VITALS (11 sets, daily range): BP systolic 148–186; BP diastolic 48–86; PULSE 72–82; RESP 16–18; TEMP 98.2–98.6; O2SAT 93–99
[~2016-10-21 10:41] MED LIST changes: -POTA-163 PO
[2016-10-21] MEDS ORDERED: LEVOFLOXACIN 500 MG PREMIX INJ 100 ML IV ONE (11:15)
[2016-10-21] MEDS ORDERED: METOPROLOL TARTRATE 25 MG TAB PO PRN (11:30)
[2016-10-21] MEDS ORDERED: CHLORHEXIDINE GLUCONATE 2 % 1 PACK (2 CLOTHS) TOPICAL PRN (11:30)
[2016-10-21] MEDS ORDERED: POVIDONE IODINE 5% (ANTISEPSIS KIT) 4 APPLICATIONS EACH NARE PRN (11:30)
[2016-10-21] MEDS: SODIUM CHLORID 0.9% 500 ML INJ 500 ML IV SCH (11:30)
[2016-10-21] MEDS ORDERED: SODIUM CHLORID 0.9% 500 ML IV PRN (11:30)
[2016-10-21] MEDS ORDERED: LORazepam 1 MG TAB SL SCH (11:30)
[2016-10-21] MEDS ORDERED: LACTATED RINGER'S 1000 ML IV PRN (11:30)
[2016-10-21] MEDS ORDERED: INSULIN HUMAN REGULAR 1,000 UNITS/10 ML VIAL SQ PRN (11:30)
[2016-10-21 11:47] LABS: AUTOMATED NEUTROPHIL # 3.5 TH/MM3 (1.8-7.7); BASOPHIL % 0.5 % (0.0-2.0); EOSINOPHIL # 0.1 TH/MM3 (0-0.4); EOSINOPHIL % 1.6 % (0.0-4.0); HEMATOCRIT 41.5 % (35.0-46.0); HEMO FLAGS DIFF FINAL; LYMPH % 28.7 % (9.0-44.0); LYMPHOCYTE # 1.7 TH/MM3 (1.0-4.8); MEAN CELL VOLUME 86.4 FL (80.0-100.0); MEAN CORPUSCULAR HEMOGLOBIN 29.5 PG (27.0-34.0); MEAN CORPUSCULAR HGB CONC 34.1 % (32.0-36.0); MONO % 8.9 % (0.0-8.0); NEUT % 60.3 % (16.0-70.0); PLATELET COUNT 188 TH/MM3 (150-450); RED CELL DISTRIBUTION WIDTH 15.1 % (11.6-17.2); WHITE BLOOD COUNT 5.9 TH/MM3 (4.0-11.0)
[2016-10-21] MEDS ORDERED: POTA-163 PO (11:50)
[2016-10-21 11:54] LABS: APTT (PATIENT) 26.9 SEC (24.3-30.1); PROTHROMBIN TIME - PATIENT 11.4 SEC (9.8-11.6)
[2016-10-21 12:02] LABS: BICARBONATE 29.7 MEQ/L (21.0-32.0); POTASSIUM 3.6 MEQ/L (3.5-5.1)
[2016-10-21] MEDS ORDERED: HEPARIN-NS/PF INJ 500 ML ONE (12:34)
[2016-10-21] MEDS ORDERED: PROTAMINE SULFATE 50 MG/5 ML VIAL ONE (13:24)
[2016-10-21] MEDS ORDERED: HEPARIN SODIUM - IV 10,000 UNITS/10 ML VIAL ONE (13:24)
[2016-10-21] MEDS ORDERED: FUROSEMIDE 40 MG/4 ML VIAL ONE (13:24)
[2016-10-21] MEDS ORDERED: fentaNYL CITRATE 250 MCG/5 ML AMP ONE (16:55)
[2016-10-21] MEDS ORDERED: ONDANSETRON HCL 4 MG/2 ML VIAL IV PUSH ONE (17:02)
[2016-10-21] MEDS ORDERED: IOHEXOL 350 MG/ML 50 ML BTL (for Cath Lab) IV ONE (17:02)
[2016-10-21] MEDS ORDERED: NEOSTIGMINE 3 MG/3 ML SYR IV ONE (17:02)
[2016-10-21] MEDS ORDERED: NS 500 ML (EXCEL BAG) 500 ML BAG IV ONE (17:02)
[2016-10-21] MEDS ORDERED: PROPOFOL 200 MG/20 ML AMP IV ONE (17:02)
[2016-10-21] MEDS ORDERED: DO NOT ADM ANY ANTICOAGULANT DRUGS PRN (17:15)
--- NOTE | 2016-10-21 17:21 | PD.CARD ---
Atrial Fibrillation Cryo Study PROCEDURE DATE: Oct 21, 2016 PROCEDURE PERFORMED Electrophysiology study, CS cannulation, 3-D mapping, transeptal approach, right and left heart catheterization, cryoablation and RF ablation of atrial fibrillation, pulmonary vein isolation, posterior ablation, anterior ablation, repeat electrophysiology study on Isuprel infusion, intracardiac echo. Very complex case. INDICATIONS FOR PROCEDURE Ms. Brandt is a 71-year-old female with atrial fibrillation, on multiple medications, on anticoagulation, referred for electrophysiology study and ablation. The risks, the nature and the benefit of the procedure are clearly stated to her. The risks include pneumothorax, cardiac perforation, stroke, need for open heart surgery and even . The patient understood and agreed to proceed. PROCEDURE As written informed consent was obtained prior to esophageal echo, the patient was kept on the table where she was prepped and draped in the usual sterile fashion. Conscious sedation was initiated and throughout the procedure by the anesthesiologist. Once sedation was verified, the right and left inguinal area was anesthetized with 2% Xylocaine. Using modified Seldinger technique, the left femoral vein was cannulated on three occasions and three guidewires were advanced over the wire, one 6, one 7, and one 10-German Hemaquet were advanced. Then the left femoral artery was done on one occasion, one guidewire was advanced over the wire. A 4-German Hemaquet was advanced. Then the right femoral vein was cannulated on one occasion and one guidewire was advanced over the wire. An 8-German Hemaquet was advanced. Then under fluoroscopic guidance through the 6 and 7-German Hemaquet, two 5- German Marcella curved quadripolar electrophysiology catheters were advanced and positioned on the His as well as coronary sinus. The patient was in sinus rhythm. Basic interval was measured. They were all within normal limits. Then through the 10-German Hemaquet, a [employer] intracardiac echo catheter was advanced and placed at the right atrium. Multiple views were obtained. There was no pericardial effusion. Pulmonary vein was seen. The atrial septum was visualized. Then the 8-German Hemaquet in the right femoral vein was exchanged for an Agilis transseptal sheath that was placed all the way to the superior vena cava. Through this sheath a Barling needle was advanced. Then the sheath, the dilator and the needle were pulled back progressively until foci engaged. Once the needle was advanced, RF was delivered for 2 seconds. I was able to cross into the left atrium. Once the needle was crossed, the dilator was advanced. Once the dilator was crossed, the sheath was advanced. Once the sheath crossed , the dilator and needle were removed. An intracardiac echo showed the sheath in good position. The patient already received 10,000 units of heparin. The goal is to get an ACT around 360 during the ablation. Through this sheath a [facility] Elliott 20-pole circumferential catheter was advanced. Using [employer] endocardial solution mapping system a three-dimensional configuration of the left atrium was obtained. Points were taken at the left superior and inferior vein, right superior and inferior vein, mitral valve, and appendage. Then at this point I decided to proceed with cryoablation. The circumferential catheter was removed. Through the sheath a 0.035 wire was advanced. I did exchange the Agilis sheath for a [employer] flex sheath. I decided to use a 28mm balloon. The balloon was advanced over the wire. First I did engage the left superior vein. The balloon was inflated, complete occlusion obtained. CryoEnergy was delivered for 3 and 3 minutes. Temperature reached -52. Then I did engage the left inferior vein, occlusion obtained. Venography showed complete occlusion and CryoEnergy was delivered for 3 and 3 minutes. Temperature was around -54 to -56. Then the right inferior was engaged, complete occlusion obtained. Temperature reach -48 for 3 and 3 minutes. Then the right superior was engaged. Before CryoEnergy of the right veins, the His catheter was placed at the left and the right subclavian. Phrenic nerve pacing was performed. There was diaphragmatic stimulation. That is going to be used for phrenic nerve monitoring during cryoablation. I did cryoablate the right superior vein. There was no loss of phrenic nerve movement , diaphragmatic movement. Phrenic nerve was intact. The temperature dropped to -54 for 3 and 3 minutes. At that point I removed the balloon. The circumferential catheter was advanced into the veins. At this point I realized, after multiple cryaablation of the right superior vein, there is still signal. After multiple the pacing and evaluation, I decided to proceed with RF ablation of the vein. Esophageal was placed before ablation for comparative monitoring during the cryo and the RF ablation. Through the sheath , I advanced a [employer]. Elliott TactiCath 65cm, 3.5mm irrigated tip mapping radiofrequency ablation catheter, the radiofrequency mapping and radiofrequency ablation catheter from [employer] Elliott. Then I did proceed with isolation of the right superior and I did ablate the anterior and posterior parts of the right superior. Then the circumferential catheter was advanced into the veins. Pacing from the vein showed no conduction to the atrium. Pacing from the atrium showed no conduction to the veins. The patient at this point received Isuprel infusion for around 10 minutes at 20mcg. No tachyarrhythmia was induced , no conduction resumed. Post-Isuprel no conduction resumed either. At that point the procedure was complete. All catheters were removed, the transeptal sheath was exchanged for a 12-German Hemaquet. Intracardiac echo showed pericardial effusion, still good flow in the pulmonary vein. No incident reported. The patient tolerated the procedure. Blood loss minimal. 1. Electrocardiogram: At baseline the patient was in sinus. Postprocedure the patient in sinus. 2. Basic Interval: Base cycle length was around 980 milliseconds . 3. Tachyarrhythmia: Atrial fibrillation was mapped and ablated. Ablation was successful. CONCLUSION Successful electrophysiology study, mapping and radiofrequency ablation of atrial fibrillation, pulmonary vein isolation, posterior and anterior wall ablation, repeat electrophysiology study on Isuprel infusion. COMMENT AND RECOMMENDATIONS The patient is going to be transferred to the telemetry unit, will be observed, and when stable can be discharged home. Lesli Blakely MD Oct 21, 2016 17:21
[2016-10-21] MEDS ORDERED: ATROPINE SULFATE 1 MG/ML VIAL IV PRN (19:30)
[2016-10-21] MEDS ORDERED: LIDOCAINE HCL 1% 50 ML VIAL INFIL PRN (19:30)
[2016-10-21] MEDS: METOPROLOL TARTRATE 100 MG TAB PO SCH (20:32)
[2016-10-21] MEDS: APIXABAN 5 MG TABLET PO SCH (20:32)
[2016-10-21] MEDS ORDERED: ONDANSETRON HCL 4 MG/2 ML VIAL IV PRN (21:00)
[2016-10-21] MEDS ORDERED: oxyCODONE/ACETAMINOPHEN 5 MG/325 MG TAB PO PRN ×2 (21:00)
[2016-10-21] MEDS ORDERED: SODIUM CHLOR 0.9% 250 ML INJ 250 ML IV PRN (21:00)
[2016-10-21] MEDS ORDERED: BACITRACIN OINT 0.9 GM PKT TOP ONE (21:00)
[2016-10-21] MEDS ORDERED: LORazepam 2 MG/ML VIAL IV PRN (21:00)
[2016-10-21] MEDS ORDERED: METOCLOPRAMIDE HCL 10 MG/2 ML VIAL IV PRN (21:00)
[2016-10-21] MEDS ORDERED: EZETIMIBE 10 MG TAB PO SCH (21:00)
[2016-10-21] MEDS ORDERED: LATANOPROST 0.005% OPHT SOLN 2.5 ML BTL EACH EYE SCH (21:00)
[2016-10-22] VITALS (16 sets, daily range): BP systolic 154–169; BP diastolic 71–78; PULSE 75–99; RESP 18–20; TEMP 98–98.5; O2SAT 93–97
[2016-10-22] MEDS: SODIUM CHLORID 0.9% 500 ML INJ 500 ML IV SCH (04:10)
[2016-10-22 06:27] LABS: APTT (PATIENT) 25.2 SEC (24.3-30.1); INTERNATIONAL NORMALIZED RATIO 1.1 RATIO
[2016-10-22] MEDS ORDERED: POTASSIUM CHLORIDE 20 MEQ CONTROLLED RELEASE TAB PO SCH (09:00)
[2016-10-22] MEDS: METOPROLOL TARTRATE 100 MG TAB PO SCH (09:00)
[2016-10-22] MEDS ORDERED: PANTOPRAZOLE SOD 20 MG DELAYED RELEASE TAB PO SCH (09:00)
[2016-10-22] MEDS ORDERED: MULTIVITAMIN-OPHTHALMIC 1 TAB PO SCH (09:00)
[2016-10-22] MEDS ORDERED: CYANOCOBALAMIN 1,000 MCG TAB PO SCH (09:00)
[2016-10-22] MEDS ORDERED: HYDROCHLOROTHIAZIDE 12.5 MG CAP PO SCH (09:00)
[2016-10-22] MEDS: APIXABAN 5 MG TABLET PO SCH (09:17)
--- NOTE | 2016-10-22 12:00 | HHI.PR ---
Subjective Remarks Feel ok Objective Vital Signs Date Time Temp Pulse Resp B/P Pulse Ox O2 Delivery O2 Flow Rate FiO2 10/22/16 11:13 98.0 84 18 154/74 97 10/22/16 11:11 81 10/22/16 11:08 93 21 10/22/16 10:10 84 10/22/16 09:50 82 10/22/16 09:50 98.0 82 20 158/78 97 10/22/16 08:06 99 10/22/16 07:57 Room Air 10/22/16 07:57 78 10/22/16 06:09 79 10/22/16 05:05 80 10/22/16 04:40 78 10/22/16 03:45 93 Room Air 10/22/16 03:39 98.5 80 18 169/71 93 10/22/16 03:00 79 10/22/16 02:00 78 10/22/16 01:00 78 10/22/16 00:44 79 10/21/16 23:51 81 10/21/16 23:45 98.6 80 18 165/64 96 10/21/16 23:00 96 Nasal Cannula 2.00 10/21/16 22:00 82 10/21/16 21:26 95 Nasal Cannula 1.00 10/21/16 21:00 78 10/21/16 20:00 76 10/21/16 19:30 98.2 80 18 148/48 99 10/21/16 19:00 99 Nasal Cannula 2.00 10/21/16 19:00 75 10/21/16 18:42 75 18 159/64 97 10/21/16 18:00 97.0 73 15 164/80 100 Nasal Cannula 2 10/21/16 17:45 73 16 166/70 100 Nasal Cannula 2 10/21/16 17:30 68 16 169/74 100 Nasal Cannula 2 10/21/16 17:15 67 18 162/64 99 Nasal Cannula 2 10/21/16 17:05 96.6 72 15 146/75 100 Nasal Cannula 2 10/21/16 17:00 74 16 181/73 99 Nasal Cannula 2 10/21/16 16:45 69 16 164/77 96 Nasal Cannula 2 I/O 10/21/16 10/21/16 10/21/16 10/22/16 10/22/16 10/22/16 07:00 15:00 23:00 07:00 15:00 23:00 Intake Total 1100 ml 960 ml Output Total 400 ml 450 ml Balance 700 ml 510 ml Intake Oral 960 ml Other 1100 ml Output Urine Total 400 ml 450 ml Result Diagram: 10/21/16 1121 10/21/16 1121 Imaging Alert, fully oriented Lungs: ventilated Heart: S1, S2 regular Abdomen: soft, no mass Ext: no edema Current Medications Medications (Trade) Dose Ordered Sig/Jairo Route Start Time Stop Time Status Last Admin Sodium Chloride 500 ml @ 30 mls/hr [id number] IV 10/21/16 11:30 Lactated Ringer's 1,000 ml @ 30 mls/hr Q24H PRN IV 10/21/16 11:30 10/24/16 11:29 (NS 500 ml Inj) 500 ml @ 30 mls/hr [id number] PRN IV 10/21/16 11:30 10/24/16 11:29 Miscellaneous Information ALL NURSING DEPARTME... UNSCH PRN .XX 10/21/16 17:15 10/22/16 17:14 (Percocet 5-325 Mg) 1 tab Q4H PRN PO 10/21/16 21:00 (Percocet 5-325 Mg) 2 tab Q4H PRN PO 10/21/16 21:00 (Ativan Inj) 0.5 mg UNSCH PRN IV 10/21/16 21:00 10/22/16 20:59 Atropine Sulfate 0.5 mg 0.5 mg UNSCH PRN IV 10/21/16 19:30 (NS 250 ml Inj) 250 ml @ 500 mls/hr ONCE PRN IV 10/21/16 21:00 10/22/16 20:59 (Reglan Inj) 10 mg Q4H PRN IV 10/21/16 21:00 (Zofran Inj) 4 mg Q4H PRN IV 10/21/16 21:00 (Xylocaine 1% Inj (50 ml)) 10 ml UNSCH PRN INFIL 10/21/16 19:30 10/22/16 19:29 (Eliquis) 5 mg BID PO 10/21/16 21:00 10/22/16 09:17 (Zetia) 10 mg HS PO 10/21/16 21:00 10/21/16 20:32 (Microzide) 12.5 mg DAILY PO 10/22/16 09:00 10/22/16 09:17 (Lopressor) 100 mg BID PO 10/21/16 21:00 10/21/16 20:32 (Ocuvite) 1 tab DAILY PO 10/22/16 09:00 (KCl) 20 meq DAILY PO 10/22/16 09:00 10/22/16 09:00 (Xalatan 0.005% Opth Soln) 1 drop HS EACH EYE 10/21/16 21:00 10/21/16 23:54 (Vitamin B12) 1,000 mcg DAILY PO 10/22/16 09:00 (Protonix) 20 mg DAILY PO 10/22/16 09:00 10/22/16 09:18 Assessment and Plan Problem List: (1) Paroxysmal atrial fibrillation Status: Acute Plan: SP ablation. Doing well Will be DH Continue on current meds Follow up as scheduled (2) Chest pain Status: Acute Plan: No chest pain reported Lesli Blakely MD Oct 22, 2016 12:00
--- NOTE | 2016-10-22 14:41 | EKG ---
Date Performed: 10/21/2016 Time Performed: 11:39:32 PTAGE: 71 years EKG: Sinus rhythm . Lead(s) unsuitable for analysis: V1 V2 V3 Left axis deviation Inferior infarct - age undetermined P ossible anterior infarct - age undetermined Compared to the previous tracing the patient is no longer in atrial fibrillation with rvr Abnormal ECG PREVIOUS TRACING : 09/12/2016 03.15 DOCTOR: Heide Clark Interpretating Date/Time 10/22/2016 14:40:56
--- NOTE | 2016-10-22 14:42 | EKG ---
Date Performed: 10/21/2016 Time Performed: 19:52:54 PTAGE: 71 years EKG: Sinus rhythm Left axis deviation QRS changes V3/V4 may be due to LVH but cannot rule out anterior infarct Left ve ntricular hypertrophy Compared to prior tracing no significant change Abnormal ECG PREVIOUS TRACING : 10/21/2016 11.39 DOCTOR: Heide Clark Interpretating Date/Time 10/22/2016 14:41:20
--- NOTE | 2016-10-22 20:11 | EKG ---
Date Performed: 10/22/2016 Time Performed: 05:50:20 PTAGE: 71 years EKG: Sinus rhythm Left axis deviation QRS changes V3/V4 may be due to LVH but cannot rule out anterior infarct Abnorma l ECG Since PREVIOUS TRACING , no significant change noted PREVIOUS TRACIN10/21/2016 19.52 DOCTOR: Heide Clark Interpretating Date/Time 10/22/2016 20:11:22
--- NOTE | 2016-11-01 17:38 | ETE ---
Study Study Date:10/21/2016 STUDY CONCLUSIONS SUMMARY - Left ventricle: The cavity size was normal. Wall thickness was normal. Systolic function was normal. The estimated ejection fraction was in the range of 55% to 60%. Wall motion was normal; there were no regional wall motion abnormalities. - Aortic valve: No evidence of vegetation. - Mitral valve: No evidence of vegetation. Mild regurgitation. - Left atrium: The atrium was dilated. No evidence of thrombus in the atrial cavity or appendage. No evidence of thrombus in the atrial cavity or appendage. - Right atrium: No evidence of thrombus in the atrial cavity or appendage. - Atrial septum: No defect or patent foramen ovale was identified. Echo contrast study showed no fevuf-eo-vvbi atrial level shunt, at baseline or with provocation. Echo contrast study showed no pijkj-ob-dome atrial level shunt, at baseline or with provocation. - Tricuspid valve: No evidence of vegetation. - Pulmonic valve: No evidence of vegetation. If LV function is below 40, please consider prescribing an ACEI or ARB or document rationale for non-use. PROCEDURE DATA Consent: The risks, benefits, and alternatives to the procedure were explained to the patient and informed consent was obtained. Procedure: Initial setup. The patient was brought to the laboratory in the fasting state. Intravenous access was obtained. Surface ECG leads and pulse oximetric signals were monitored. Sedation. Conscious sedation was administered by cardiology staff. Transesophageal echocardiography. Topical anesthesia was obtained using viscous lidocaine. A transesophageal probe was inserted by the attending commercial pest control representative. Image quality was good. Study completion: All IVs inserted during the procedure were removed. The patient tolerated the procedure well. There were no complications. Transesophageal echocardiography. 2D, complete spectral Doppler, and color Doppler. CARDIAC ANATOMY LEFT VENTRICLE: The cavity size was normal. Wall thickness was normal. Systolic function was normal. The estimated ejection fraction was in the range of 55% to 60%. Wall motion was normal; there were no regional wall motion abnormalities. AORTIC VALVE: Trileaflet; mildly thickened, mildly calcified leaflets. Cusp separation was normal. No evidence of vegetation. Doppler: No significant regurgitation. Aorta: - There was no atheroma. There was no evidence for dissection. Aortic root: The aortic root was not dilated. Ascending aorta: The ascending aorta was normal in size. Aortic arch: The aortic arch was normal in size. Descending aorta: The descending aorta was normal in size. MITRAL VALVE: Structurally normal valve. Leaflet separation was normal. No evidence of vegetation. Doppler: Mild regurgitation. LEFT ATRIUM: The atrium was dilated. No evidence of thrombus in the atrial cavity or appendage. No evidence of thrombus in the atrial cavity or appendage. The appendage was morphologically a left appendage, multilobulated, and of normal size. Emptying velocity was normal. ATRIAL SEPTUM: No defect or patent foramen ovale was identified. Echo contrast study showed no ydgse-oe-zeug atrial level shunt, at baseline or with provocation. Echo contrast study showed no gzwpd-nv-texn atrial level shunt, at baseline or with provocation. RIGHT VENTRICLE: The cavity size was normal. Wall thickness was normal. Systolic function was normal. PULMONIC VALVE: Structurally normal valve. No evidence of vegetation. TRICUSPID VALVE: Structurally normal valve. Leaflet separation was normal. No evidence of vegetation. Doppler: Trace regurgitation. PULMONARY ARTERY: The main pulmonary artery was normal-sized. RIGHT ATRIUM: The atrium was normal in size. No evidence of thrombus in the atrial cavity or appendage. The appendage was morphologically a right appendage. PERICARDIUM: There was no pericardial effusion. Prepared and signed by Lesli Blakely [id number]
== END 2016-10-22 12:41 | disposition home or self-care (01) ==
LOC: HDOC 10:41 → HDIC 10:42 → HCIS 18:48 → HDOC 10-22 12:41
PROVIDERS: ATTEND Internal Medicine Interventional Cardiology
DX: I48.0 Paroxysmal atrial fibrillation (principal); I31.3 Pericardial effusion (noninflammatory); I10 Essential (primary) hypertension
CPT/HCPCS: 00537; 80048; 85002; 85025; 85610; 85730; 86850; 86900; 86901; 93005; 93312; 93320; 93325; 93613; 93623; 93656; 93662; C1730; C1731; C1732; C1733; C1759; C2630; J1644; J1940; J1956; J2405; J2710; J2720; J3010; J7040; Q9967

== ENCOUNTER → 2016-11-14 | Outpatient (CLI) | payer MEDICARE, OTHER ==
[~2016-11-14] MED LIST changes: -CARD120C4 PO; -D-3 PO; -DIGO0.12 PO; -METO50TA PO; +POTA-163 PO; -TRIBTAB PO
[2016-11-14 09:57] LABS: POTASSIUM 3.8 MEQ/L (3.5-5.1)
== END ==
LOC: PLAB 09:17
PROVIDERS: ATTEND Family Medicine
DX: E87.6 Hypokalemia (principal)
CPT/HCPCS: 36415; 80048

== ENCOUNTER → 2017-03-16 | Outpatient (CLI) | payer MEDICARE, OTHER ==
[2017-03-16 12:12] LABS: AUTOMATED NEUTROPHIL # 2.4 TH/MM3 (1.8-7.7); BASOPHIL % 0.8 % (0.0-2.0); EOSINOPHIL # 0.1 TH/MM3 (0-0.4); EOSINOPHIL % 2.5 % (0.0-4.0); HEMATOCRIT 45.4 % (35.0-46.0); HEMO FLAGS DIFF FINAL; LYMPH % 36.8 % (9.0-44.0); LYMPHOCYTE # 1.8 TH/MM3 (1.0-4.8); MEAN CELL VOLUME 86.7 FL (80.0-100.0); MEAN CORPUSCULAR HEMOGLOBIN 28.8 PG (27.0-34.0); MEAN CORPUSCULAR HGB CONC 33.2 % (32.0-36.0); NEUT % 49.9 % (16.0-70.0); PLATELET COUNT 191 TH/MM3 (150-450); RED BLOOD COUNT 5.24 MIL/MM3 (4.00-5.30); RED CELL DISTRIBUTION WIDTH 15.9 % (11.6-17.2); WHITE BLOOD COUNT 4.8 TH/MM3 (4.0-11.0)
[2017-03-16 14:36] LABS: ALT (GPT) 24 U/L (10-53); ANION GAP 7 MEQ/L (5-15); AST (GOT) 20 U/L (15-37); BICARBONATE 28.3 MEQ/L (21.0-32.0); BLOOD UREA NITROGEN 17 MG/DL (7-18); CHLORIDE 105 MEQ/L (98-107); GLOMERULAR FILTRATION RATE 54 ML/MIN (>89); GLUCOSE,FASTING 100 MG/DL (74-99); SODIUM (NA) 140 MEQ/L (136-145)
[2017-03-16 14:39] LABS: ALKALINE PHOSPHATASE 73 U/L (45-117); HDL CHOLESTEROL 59.4 MG/DL (40.0-60.0); LDL CHOLESTEROL 78 MG/DL (0-99); TOTAL BILIRUBIN ADULT 0.9 MG/DL (0.2-1.0)
== END ==
LOC: PLAB 09:52
PROVIDERS: ATTEND Family Medicine
DX: I12.9 Hypertensive chronic kidney disease with stage 1 through stage 4 chronic kidney disease, or unspecified chronic kidney disease (principal); N18.3 Chronic kidney disease, stage 3 (moderate); E78.2 Mixed hyperlipidemia
CPT/HCPCS: 36415; 80053; 80061; 85025

== ENCOUNTER → 2017-09-09 | Outpatient (CLI) | payer MEDICARE, OTHER ==
[~2017-09-09] MED LIST changes: +EZET10 PO; -OMEP20TA PO; +OMEP20TA93 PO; -ZETI10TA5 PO
[2017-09-09 17:50] LABS: AUTOMATED NEUTROPHIL # 3.2 TH/MM3 (1.8-7.7); BASOPHIL % 0.6 % (0.0-2.0); EOSINOPHIL # 0.2 TH/MM3 (0-0.4); HEMATOCRIT 44.2 % (35.0-46.0); HEMOGLOBIN 14.9 GM/DL (11.6-15.3); LYMPH % 33.3 % (9.0-44.0); LYMPHOCYTE # 1.9 TH/MM3 (1.0-4.8); MEAN CELL VOLUME 88.2 FL (80.0-100.0); MEAN CORPUSCULAR HEMOGLOBIN 29.8 PG (27.0-34.0); MEAN CORPUSCULAR HGB CONC 33.9 % (32.0-36.0); MEAN PLATELET VOLUME 8.4 FL (7.0-11.0); MONO % 8.2 % (0.0-8.0); MONOCYTE # 0.5 TH/MM3 (0-0.9); NEUT % 54.9 % (16.0-70.0); PLATELET COUNT 197 TH/MM3 (150-450); RED BLOOD COUNT 5.01 MIL/MM3 (4.00-5.30); RED CELL DISTRIBUTION WIDTH 15.3 % (11.6-17.2); WHITE BLOOD COUNT 5.8 TH/MM3 (4.0-11.0)
[2017-09-09 18:12] LABS: ALBUMIN 4.1 GM/DL (3.4-5.0); AST (GOT) 19 U/L (15-37); BICARBONATE 28.9 MEQ/L (21.0-32.0); BLOOD UREA NITROGEN 18 MG/DL (7-18); CALCIUM 9.5 MG/DL (8.5-10.1); CHLORIDE 104 MEQ/L (98-107); CREATININE 1.11 MG/DL (0.50-1.00); GLOMERULAR FILTRATION RATE 48 ML/MIN (>89); GLUCOSE,FASTING 87 MG/DL (74-99); SODIUM (NA) 141 MEQ/L (136-145)
[2017-09-09 18:13] LABS: CHOLESTEROL 148 MG/DL (120-200)
[2017-09-09 18:17] LABS: ALKALINE PHOSPHATASE 76 U/L (45-117); ALT (GPT) 18 U/L (10-53); CHOLESTEROL/ HDL RATIO 2.81 RATIO; HDL CHOLESTEROL 52.6 MG/DL (40.0-60.0); LDL CHOLESTEROL 81 MG/DL (0-99); TOTAL BILIRUBIN ADULT 0.7 MG/DL (0.2-1.0); TOTAL PROTEIN 7.4 GM/DL (6.4-8.2); TRIGLYCERIDES 70 MG/DL (42-150)
== END ==
LOC: PLAB 11:51
PROVIDERS: ATTEND Family Medicine
DX: I12.9 Hypertensive chronic kidney disease with stage 1 through stage 4 chronic kidney disease, or unspecified chronic kidney disease (principal); N18.3 Chronic kidney disease, stage 3 (moderate); K21.9 Gastro-esophageal reflux disease without esophagitis; K59.00 Constipation, unspecified; R68.81 Early satiety; I48.91 Unspecified atrial fibrillation
CPT/HCPCS: 36415; 80053; 80061; 85025

== ENCOUNTER → 2017-12-04 | Outpatient (CLI) | payer MEDICARE, OTHER ==
[2017-12-04 13:47] LABS: BICARBONATE 32.8 MEQ/L (21.0-32.0); CALCIUM 9.6 MG/DL (8.5-10.1); CREATININE 1.11 MG/DL (0.50-1.00); MAGNESIUM 2.1 MG/DL (1.5-2.5)
== END ==
LOC: PLAB 10:21
PROVIDERS: ATTEND Internal Medicine Cardiovascular Disease
DX: E78.5 Hyperlipidemia, unspecified (principal); Z79.899 Other long term (current) drug therapy
CPT/HCPCS: 36415; 80048; 83735